=== PATIENT | female | born 1950 | race Caucasian/White ===

== ENCOUNTER → 2020-01-15 09:08 | Outpatient (CLI) | payer MEDICARE, SELFPAY ==
--- NOTE | ~2020-01-15 | CT_ITS ---
EXAMINATION: CT abdomen pelvis wo con DATE: 01/15/2020 09:22 INDICATION: Right-sided abdominal pain, excessive gas TECHNIQUE: Computed tomography (CT) of the abdomen and pelvis was performed without intravenous contr ast. Automated exposure control and iterative reconstruction technique were employed. Exam dose: 919 .07 mGy-cm total exam DLP. COMPARISON: 11/20/2013 CT abdomen pelvis FINDINGS: The lung bases are clear of infiltrate or consolidation. Heart size is normal. There is coronary artery calcification. The liver, gallbladder, spleen, pancreas, bile and pancreatic ducts, and adrenal glands and kidneys a re unremarkable. There is normal caliber and atherosclerotic calcification of the abdominal aorta. No intraperitoneal or retroperitoneal or pelvic mass lesion or adenopathy or ascites. Normal appendix. There is extensive diverticulosis of left and right colon; no evidence of diverticulitis. No bowel ob struction, bowel wall thickening, pneumatosis or intraperitoneal free air. The uterus and adnexal areas and urinary bladder are unremarkable. Diffuse idiopathic skeletal hyperostosis of the thoracic spine. There is degenerative spurring of the lumbar spine No suspicious osteolytic or osteoblastic lesions are identified. IMPRESSION: Extensive colonic diverticulosis; no CT evidence of diverticulitis Normal appendix Reviewed, dictated and finalized at [facility]. Reviewed, dictated and finalized at [facility].
== END ==
PROVIDERS: PCP Internal Medicine; Visit Provider Internal Medicine
DX: R10.9 Unspecified abdominal pain (principal); K57.90 Diverticulosis of intestine, part unspecified, without perforation or abscess without bleeding
CPT/HCPCS: 74176